=== PATIENT | female | born 1995 | race Caucasian/White ===

== ENCOUNTER 2021-03-26 04:13 | Inpatient (IN) | payer OTHER ==
[2021-03-26 04:31] VITALS: BMI 25.3
[2021-03-26] MEDS ORDERED: Acetaminophen 500 MG TAB PO PRN (05:19)
[2021-03-26] MEDS ORDERED: Ibuprofen 800 MG TAB PO PRN (05:19)
[2021-03-26] MEDS ORDERED: HYDROcodone/Acetaminophen 5/325 mg Tablet PO PRN ×4 (05:19→12:21)
[2021-03-26] MEDS ORDERED: Butorphanol Tartrate 1 MG/ML VIAL SLOW IVP PRN (05:19)
[2021-03-26] MEDS ORDERED: hydrALAZINE 20 MG/ML VIAL SLOW IVP PRN ×2 (05:19→12:21)
[2021-03-26] MEDS ORDERED: Methylergonovine 0.2 MG/ML VIAL IM PRN (05:19)
[2021-03-26] MEDS ORDERED: Promethazine HCl 25 MG/ML VIAL IM PRN ×2 (05:19→06:33)
[2021-03-26] MEDS ORDERED: Carboprost 250 MCG/ML AMP IM PRN (05:19)
[2021-03-26] MEDS ORDERED: Ondansetron PF 4 MG/2 ML Vial IVP PRN ×3 (05:19→12:21)
[2021-03-26] MEDS ORDERED: Diphenoxylate HCl/Atropine Tablet PO PRN ×2 (05:19)
[2021-03-26] MEDS ORDERED: Misoprostol 200 MCG TAB PR PRN (05:19)
[2021-03-26] MEDS ORDERED: Lidocaine 1% (PF) 30 ML VIAL SC PRN (05:19)
[2021-03-26] MEDS ORDERED: NS w/ Oxytocin 30 units 500 ML IV SCH ×3 (05:30→12:21)
[2021-03-26] MEDS ORDERED: Lactated Ringer's 1,000 ML IV SCH (05:30)
[2021-03-26 05:37] LABS: Hemoglobin 11.6 g/dL (12.0-15.5); Mean Corpuscular HGB CONC 34.5 g/dL (32.0-36.0); Mean Corpuscular Hemoglobin 32.2 pg (27.0-33.0); Mean Corpuscular Volume 93.3 fl (81.6-98.3); Mean Platelet Volume 9.7 fl (7.4-10.4); Platelet Count 112 10x3/uL (150-450); RBC Distribution Width 13.9 % (11.5-14.5); White Blood Cell (WBC) Count 9.9 10x3/uL (3.5-10.5)
[2021-03-26] MEDS ORDERED: Fentanyl 2 mcg/Bup 0.1% Cadd 100 ML ONE (05:47)
[2021-03-26 06:06] LABS: Hep B Surf Ag Non-Reactive S/CO (NonReactive)
[2021-03-26 06:07] LABS: Syphilis Antibody Nonreactive (Nonreactive); Syphilis Antibody Index 0.07 S/CO (<1.00 Non-Reactive)
[2021-03-26 06:10] LABS: HBSAg Index 0.19 S/CO (0-0.99)
[2021-03-26] MEDS ORDERED: Hydrocerin (Eucerin) Cream 120 gm Jar TOP PRN (06:33)
[2021-03-26] MEDS ORDERED: ePHEDrine Sulfate 50 MG/10 ML VIAL SLOW IVP PRN (06:33)
[2021-03-26] MEDS ORDERED: Naloxone HCl 0.4 mg/ml Vial IVP PRN ×2 (06:33)
[2021-03-26] MEDS ORDERED: diphenhydrAMINE 50 MG/ML VIAL IVP PRN (06:33)
[2021-03-26] MEDS ORDERED: Lactated Ringer's 500 ML IV PRN (06:33)
[2021-03-26] MEDS ORDERED: Acetaminophen 325 MG TAB PO PRN (06:33)
[2021-03-26] MEDS ORDERED: Communication Order-Pharmacy FS SCH (06:45)
[2021-03-26] MEDS ORDERED: Fentanyl 2 mcg/Bupivacaine 0.1% Cassette 100 ML EPIDURAL SCH (06:45)
[2021-03-26 06:57] LABS: SARS-CoV-2 NAA Rapid Test Not Detected (NotDetected)
[2021-03-26] MEDS ORDERED: Bupivacaine 0.25% HCL 30 ML VIAL ONE (07:00)
[2021-03-26] MEDS ORDERED: Bisacodyl 10 MG SUPP PR PRN (12:21)
[2021-03-26] MEDS ORDERED: Lanolin Ointment 7 GM TUBE TOP PRN (12:21)
[2021-03-26] MEDS ORDERED: Benzocaine-Menthol 82.5 ML CAN TOP PRN (12:21)
[2021-03-26] MEDS ORDERED: Misoprostol 200 MCG TAB VAG PRN (12:21)
[2021-03-26] MEDS ORDERED: Milk Of Magnesia 30 ML UDCUP PO PRN (12:21)
[2021-03-26] MEDS ORDERED: Boostrix 0.5 ML (Tdap) VIAL IM ONE (12:21)
[2021-03-26] MEDS: Ibuprofen 800 MG TAB PO SCH ×2 (14:37→22:13)
[2021-03-26] MEDS: Ferrous Sulfate 325 MG TAB PO SCH (16:53)
[2021-03-26] MEDS: Docusate 100 MG CAP PO SCH (22:13)
[2021-03-27] MEDS: Ibuprofen 800 MG TAB PO SCH (05:44)
[2021-03-27] MEDS: Ferrous Sulfate 325 MG TAB PO SCH (07:39)
[2021-03-27] MEDS: Docusate 100 MG CAP PO SCH (08:27)
[2021-03-27] MEDS ORDERED: Prenatal Vitamin 1 TAB PO SCH (09:00)
[2021-03-27 11:26] VITALS: BP 109/58; TEMP 98.1
== END 2021-03-27 15:15 | disposition home or self-care (01) | DRG 807 ==
LOC: CSHLD 04:13 → CSHPP 11:50
PROVIDERS: ADMIT Obstetrics & Gynecology; ATTEND Obstetrics & Gynecology
PROC: 10E0XZZ Delivery of Products of Conception, External Approach (ICD-10-PCS; principal; 2021-03-26)
DX: O80 Encounter for full-term uncomplicated delivery (principal); Z37.0 Single live birth; Z3A.40 40 weeks gestation of pregnancy; Z20.822 Contact with and (suspected) exposure to COVID-19
CPT/HCPCS: 36415; 51702; 85027; 86780; 86850; 86900; 86901; 87340; J2590; J7120; S0020; U0002